=== PATIENT | male | born 1990 | race Asian ===

== ENCOUNTER 2018-01-25 17:20 | Emergency (ER) | payer MEDICAID ==
[~2018-01-25] VITALS: Ht 162.6 cm; Wt 62.5 kg
[~2018-01-25 17:20] MED LIST: ATEN100T PO
[2018-01-25 17:25] VITALS: BP 179/105
[2018-01-25 18:10] LABS: BASOPHILS # (AUTO) 0.1 X10'3 (0-0.2); EOSINOPHILS # (AUTO) 0.3 X10'3 (0-0.9); EOSINOPHILS % (AUTO) 2.5 % (0-6); HEMATOCRIT 43.7 % (42.0-52.0); HEMOGLOBIN 14.4 g/dl (14.0-17.9); LYMPHOCYTES # (AUTO) 2.4 X10'3 (1.1-4.8); LYMPHOCYTES % (AUTO) 19.8 % (21-51); MEAN CORPUSCULAR HEMOGLOBIN 26.5 PG (27.0-31.0); MEAN CORPUSCULAR VOLUME 80.1 FL (78-98); MEAN PLATELET VOLUME 9.4 FL (7.4-10.4); MONOCYTES # (AUTO) 0.9 X10'3 (0-0.9); MONOCYTES % (AUTO) 7.6 % (2-12); NEUTROPHILS # (AUTO) 8.2 X10'3 (1.8-7.7); NEUTROPHILS % (AUTO) 69.1 % (42-75); PLATELET COUNT 290 X10'3 (140-440); RED BLOOD COUNT 5.46 X10'6 (4.70-6.10); RED CELL DISTRIBUTION WIDTH 13.5 % (11.5-14.5); WHITE BLOOD COUNT 11.9 X10'3 (4.5-11.0)
[2018-01-25] MEDS ORDERED: morphine 2 MG/ML inj. syringe IV ONE (18:20)
[2018-01-25] MEDS ORDERED: normal saline 1000ML IV soln IVB ONE (18:20)
[2018-01-25 18:23] LABS: ALANINE AMINOTRANSFERASE 81 U/L (12-78); ALBUMIN 4.5 G/DL (3.4-5.0); ALBUMIN/GLOBULIN RATIO 1.2 (1.1-1.5); ALKALINE PHOSPHATASE 79 IU/L (46-116); ANION GAP 8 (8-16); ASPARTATE AMINO TRANSFERASE 22 U/L (10-37); BILIRUBIN,TOTAL 0.4 MG/DL (0.1-1.0); BLOOD UREA NITROGEN 17 MG/DL (7-18); BUN/CREATININE RATIO 15.7 (5.4-32.0); CALCIUM 9.2 MG/DL (8.5-10.1); CHLORIDE 103 MMOL/L (99-107); CREATININE 1.08 MG/DL (0.60-1.10); GLUCOSE 106 MG/DL (70-104); SODIUM 141 MMOL/L (135-145); TOTAL CARBON DIOXIDE 29.6 MMOL/L (24-32); TOTAL PROTEIN 8.3 G/DL (6.4-8.2); eGFR 82 ML/MIN
[2018-01-25] MEDS ORDERED: iohexol 300mg/ml 100ml inj. ONE (18:55)
[2018-01-25] MEDS ORDERED: ondansetron/PF 4mg/2ml inj IV ONE (21:10)
[2018-01-25] MEDS ORDERED: magnesium citrate 296ml oral solution PO ONE (21:40)
== END 2018-01-25 22:04 | disposition home or self-care (01) ==
LOC: ER 17:21
DX: K59.00 Constipation, unspecified (principal); R10.31 Right lower quadrant pain
CPT/HCPCS: 36415; 74177; 80053; 85025; 96374; 96375; 99285; J2270; J2405; J7030; Q9967

== ENCOUNTER 2018-04-19 06:31 | Emergency (ER) | payer MEDICAID ==
[~2018-04-19] VITALS: Ht 162.6 cm; Wt 64.0 kg
[2018-04-19 06:32] VITALS: BP 157/109
[2018-04-19] MEDS ORDERED: ibuprofen tablet 400 MG TABLET PO ONE (07:00)
[2018-04-19] MEDS ORDERED: cyclobenzaprine 10mg tablet PO ONE (07:00)
[2018-04-19] MEDS ORDERED: CARI350T PO (07:03)
== END 2018-04-19 07:21 | disposition home or self-care (01) ==
LOC: ER 06:31
DX: S29.011A Strain of muscle and tendon of front wall of thorax, initial encounter (principal); G89.29 Other chronic pain; Z79.899 Other long term (current) drug therapy; X58.XXXA Exposure to other specified factors, initial encounter; Y93.89 Activity, other specified; Y92.89 Other specified places as the place of occurrence of the external cause; Y99.8 Other external cause status
CPT/HCPCS: 99283

== ENCOUNTER 2018-10-02 11:04 | Emergency (ER) | payer MEDICAID ==
[~2018-10-02] VITALS: Ht 162.6 cm; Wt 63.6 kg
[~2018-10-02 11:04] MED LIST changes: +CARI350T PO
[2018-10-02 11:05] VITALS: BP 169/109
[2018-10-02] MEDS ORDERED: normal saline 1000ML IV soln IVB ONE (12:40)
[2018-10-02] MEDS ORDERED: SUMAtriptan succ. 6 MG/0.5ml vial SQ ONE (12:40)
[2018-10-02] MEDS ORDERED: proCHLORperazine 10 MG/2 ml inj IV ONE (12:40)
== END 2018-10-02 14:45 | disposition home or self-care (01) ==
LOC: ER 11:04
DX: G43.909 Migraine, unspecified, not intractable, without status migrainosus (principal); I10 Essential (primary) hypertension; G89.29 Other chronic pain
CPT/HCPCS: 96361; 96372; 96374; 99285; J0780; J3030

== ENCOUNTER 2021-05-24 17:34 | Emergency (ER) | payer MEDICAID ==
[~2021-05-24] VITALS: Ht 162.6 cm; Wt 64.0 kg
[2021-05-24 17:42] VITALS: BP 161/118
[2021-05-24] MEDS ORDERED: ketorolac trometh. 30mg/ml inj. IM ONE (19:35)
[2021-05-24] MEDS ORDERED: ketorolac tromethamine 15mg/ml inj. IM ONE (19:35)
== END 2021-05-24 19:46 | disposition home or self-care (01) ==
LOC: ER 17:34
DX: M25.512 Pain in left shoulder (principal); G43.909 Migraine, unspecified, not intractable, without status migrainosus; I10 Essential (primary) hypertension; G89.29 Other chronic pain; F41.9 Anxiety disorder, unspecified; F31.9 Bipolar disorder, unspecified; Z79.899 Other long term (current) drug therapy
CPT/HCPCS: 73030; 96372; 99284; J1885

== ENCOUNTER 2021-05-26 13:55 | Emergency (ER) | payer MEDICAID ==
[~2021-05-26] VITALS: Ht 162.6 cm; Wt 65.6 kg
[2021-05-26 13:58] VITALS: BP 164/105
== END 2021-05-26 16:25 | disposition left against medical advice (07) ==
LOC: ER 13:56
DX: M25.519 Pain in unspecified shoulder (principal); Z53.21 Procedure and treatment not carried out due to patient leaving prior to being seen by health care provider

== ENCOUNTER 2022-06-30 20:46 | Emergency (ER) | payer MEDICAID ==
[~2022-06-30] VITALS: Ht 162.6 cm; Wt 75.0 kg
--- NOTE | 2022-06-30 23:36 | NUR ---
pt asking for update, informed them that he is waiting to be seen by a provider
[2022-07-01] MEDS ORDERED: normal saline 1000ML IV soln IVB ONE (00:50)
[2022-07-01 01:14] VITALS: BP 144/96
== END 2022-07-01 01:16 | disposition home or self-care (01) ==
LOC: ER 20:47
DX: F10.920 Alcohol use, unspecified with intoxication, uncomplicated (principal); G43.909 Migraine, unspecified, not intractable, without status migrainosus; I10 Essential (primary) hypertension; G89.29 Other chronic pain; M54.9 Dorsalgia, unspecified; F41.9 Anxiety disorder, unspecified; F32.A Depression, unspecified; Z79.899 Other long term (current) drug therapy; Y90.9 Presence of alcohol in blood, level not specified
CPT/HCPCS: 71045; 99285; J7030

== ENCOUNTER 2022-09-20 10:13 | Emergency (ER) | payer MEDICAID ==
[~2022-09-20] VITALS: Ht 162.6 cm; Wt 68.0 kg
[2022-09-20 10:18] VITALS: BP 132/94
[2022-09-20 11:05] LABS: BASOPHILS # (AUTO) 0.1 X10'3 (0-0.2); BASOPHILS % (AUTO) 0.4 % (0-1); EOSINOPHILS % (AUTO) 0 % (0-6); HEMATOCRIT 48.9 % (42.0-52.0); HEMOGLOBIN 16.1 g/dl (14.0-17.9); LYMPHOCYTES # (AUTO) 1.1 X10'3 (1.1-4.8); LYMPHOCYTES % (AUTO) 7.3 % (21-51); MEAN CORPUSCULAR HEMOGLOBIN 25.5 PG (27.0-31.0); MEAN CORPUSCULAR HGB CONC 32.9 g/dL (33.0-36.5); MEAN CORPUSCULAR VOLUME 77.3 FL (78-98); MEAN PLATELET VOLUME 9.8 FL (7.4-10.4); MONOCYTES # (AUTO) 1.2 X10'3 (0-0.9); MONOCYTES % (AUTO) 8.4 % (2-12); NEUTROPHILS # (AUTO) 12.1 X10'3 (1.8-7.7); NEUTROPHILS % (AUTO) 83.9 % (42-75); PLATELET COUNT 188 X10'3 (140-440); RED BLOOD COUNT 6.32 X10'6 (4.70-6.10); RED CELL DISTRIBUTION WIDTH 13.6 % (11.5-14.5); WHITE BLOOD COUNT 14.4 X10'3 (4.5-11.0)
[2022-09-20 11:26] LABS: ALANINE AMINOTRANSFERASE 75 U/L (12-78); ALBUMIN 3.7 G/DL (3.4-5.0); ALBUMIN/GLOBULIN RATIO 0.9 (1.1-1.5); ALKALINE PHOSPHATASE 72 IU/L (46-116); ANION GAP 12 (8-16); ASPARTATE AMINO TRANSFERASE 60 U/L (10-37); BILIRUBIN,TOTAL 0.3 MG/DL (0.1-1.0); BLOOD UREA NITROGEN 18 MG/DL (7-18); CALCIUM 8.9 MG/DL (8.5-10.1); CHLORIDE 106 MMOL/L (99-107); CREATININE 1.29 MG/DL (0.60-1.10); GLUCOSE 111 MG/DL (70-104); POTASSIUM 3.1 MMOL/L (3.5-5.1); SODIUM 138 MMOL/L (135-145); TOTAL CARBON DIOXIDE 19.8 MMOL/L (24-32); eGFR 65 ML/MIN
[2022-09-20] MEDS ORDERED: iohexol 300mg/ml 100ml inj. ONE (12:20)
[2022-09-20] MEDS ORDERED: potassium Cl 20 mEq SR tablet PO STA (13:16)
[2022-09-20] MEDS ORDERED: POTA-205 PO (13:21)
[2022-09-20 13:51] LABS: C DIFF SPECIMEN=DIARRHEA? ACCEPTABLE; C DIFFICILE TOXINS A&B NEGATIVE (Neg)
== END 2022-09-20 13:51 | disposition home or self-care (01) ==
LOC: ER 10:14
DX: R19.7 Diarrhea, unspecified (principal); E87.6 Hypokalemia; G43.909 Migraine, unspecified, not intractable, without status migrainosus; G89.29 Other chronic pain; M54.50 Low back pain, unspecified; F31.9 Bipolar disorder, unspecified
CPT/HCPCS: 36415; 74177; 80053; 85025; 87045; 87046; 87324; 87449; 89055; 99285; J3490; Q9967

== ENCOUNTER 2023-06-14 14:08 | Emergency (ER) | payer MEDICAID ==
[~2023-06-14] VITALS: Ht 162.6 cm; Wt 60.9 kg
[~2023-06-14 14:08] MED LIST changes: +POTA-205 PO
[2023-06-14 14:14] VITALS: BP 149/112
[2023-06-14] MEDS ORDERED: RISP1TAB98 PO (16:38)
== END 2023-06-14 16:47 | disposition home or self-care (01) ==
LOC: ER 14:08
DX: F10.951 Alcohol use, unspecified with alcohol-induced psychotic disorder with hallucinations (principal); G43.909 Migraine, unspecified, not intractable, without status migrainosus; I10 Essential (primary) hypertension; G89.29 Other chronic pain; M54.9 Dorsalgia, unspecified; F31.9 Bipolar disorder, unspecified; Z79.899 Other long term (current) drug therapy; Y90.9 Presence of alcohol in blood, level not specified
CPT/HCPCS: 99283

== ENCOUNTER 2023-09-30 21:08 | Emergency (ER) | payer MEDICAID ==
[~2023-09-30] VITALS: Ht 165.1 cm; Wt 68.2 kg
[~2023-09-30 21:08] MED LIST changes: +RISP1TAB98 PO
[2023-09-30 21:10] VITALS: BP 171/98; PULSE 106; TEMP 98.1; O2SAT 100
[2023-09-30 21:12] VITALS: RESP 16
== END 2023-09-30 22:25 ==
LOC: ER 21:08
DX: S00.81XA Abrasion of other part of head, initial encounter (principal); S50.811A Abrasion of right forearm, initial encounter; S60.512A Abrasion of left hand, initial encounter; V98.8XXA Other specified transport accidents, initial encounter; Y93.89 Activity, other specified; Y92.89 Other specified places as the place of occurrence of the external cause; Y99.8 Other external cause status
CPT/HCPCS: 99283